=== PATIENT | male | born 1975 | race Caucasian/White ===

== ENCOUNTER 2022-08-21 18:08 | Emergency (ER) | payer OTHER, SELFPAY ==
[2022-08-21 18:15] VITALS: BP 128/76; PULSE 86; RESP 18; TEMP 36.8; O2SAT 97; BMI 32.1
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
[2022-08-21 18:57] VITALS: BP 128/76; PULSE 86; RESP 18; TEMP 36.8; O2SAT 97
== END 2022-08-21 19:05 | disposition home or self-care (01) ==
PROVIDERS: Emergency Provider Nurse Practitioner; PCP Family Medicine
DX: T22.011A Burn of unspecified degree of right forearm, initial encounter (principal); X13.1XXA Other contact with steam and other hot vapors, initial encounter
CPT/HCPCS: 99204; 99212; G0463

== ENCOUNTER 2023-03-18 19:13 | Emergency (ER) | payer OTHER, SELFPAY ==
[2023-03-18 19:15] VITALS: BP 142/104; PULSE 77; RESP 18; TEMP 36.5; O2SAT 97; BMI 32.1
--- NOTE | 2023-03-18 19:23 | PC.NURSE ---
Poison Control called on patient. Recommended that we flush with saline for one hour, and a split lamp exam. Ophthalmology eval recommended 2-3 days after ER visit.
[2023-03-18] MEDS: 0.9 % SODIUM CHLORIDE 1000ML 1,000 ML 999 ML IV (19:55)
--- NOTE | 2023-03-18 19:55 | PC.NURSE ---
Bilateral eye irrigation started.
--- NOTE | 2023-03-18 20:27 | PC.NURSE ---
Rounded on patient, no needs voiced at this time.
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
[2023-03-18] MEDS: GENTAMICIN 0.3% OPTH SOL 5ML 1 ML OP (20:40)
[2023-03-18] MEDS: FLUORESCEIN SODIUM 1MG STRIP 1 MG OP (20:41)
[2023-03-18] MEDS: TETRACAINE 0.5% OPTH SOL 15ML OP (20:41)
[2023-03-18 21:01] VITALS: BP 138/98; PULSE 72; RESP 18; TEMP 36.6; O2SAT 99
== END 2023-03-18 21:02 | disposition home or self-care (01) ==
PROVIDERS: Emergency Provider Student in an Organized Health Care Education/Training Program; PCP Family Medicine
DX: T26.11XA Burn of cornea and conjunctival sac, right eye, initial encounter (principal); T26.12XA Burn of cornea and conjunctival sac, left eye, initial encounter; T54.2X1A Toxic effect of corrosive acids and acid-like substances, accidental (unintentional), initial encounter; T54.2X2A Toxic effect of corrosive acids and acid-like substances, intentional self-harm, initial encounter; F17.200 Nicotine dependence, unspecified, uncomplicated
CPT/HCPCS: 99283